=== PATIENT | male | born 1975 | race Caucasian/White ===

== ENCOUNTER 2017-10-12 16:27 | Emergency (ER) | payer OTHER, SELFPAY | END 2017-10-12 16:53 | disposition home or self-care (01) | LOC: ERS 16:27 | DX: B02.9 Zoster without complications (principal); I10 Essential (primary) hypertension; F17.210 Nicotine dependence, cigarettes, uncomplicated | CPT/HCPCS: 99282 ==

== ENCOUNTER 2017-10-16 08:46 | Emergency (ER) | payer SELFPAY ==
[2017-10-16] MEDS ORDERED: Ondansetron HCl/PF 4 MG/2 ML Vial ONE (09:31)
[2017-10-16 09:52] LABS: #Basophils 0.1 thou/uL (0.0-0.2); #Eosinphils 0.2 thou/uL (0.0-0.7); #Lymphocytes 1.8 thou/uL (1.20-3.40); #Monocytes 0.7 thou/uL (0.11-0.59); %Basophils 1.3 % (0.0-1.0); %Lymphocytes 26.7 % (21.0-51.0); %Monocytes 9.9 % (0.0-10.0); %Neutrophils 59.1 % (42.0-75.0); Hemoglobin 15.4 g/dL (14.0-18.0); Mean Corpuscular HGB CONC 33.7 g/dL (32.0-36.0); Mean Corpuscular Hemoglobin 30.4 pg (27.0-31.0); Mean Corpuscular Volume 90.3 fl (80.0-94.0); Mean Platelet Volume 7.9 fL (7.4-10.4); Platelet Count 236 thou/uL (130-400); Red Blood Cell (RBC) Count 5.05 mill/uL (4.70-6.10); White Blood Cell (WBC) Count 6.7 thou/uL (4.8-10.8)
[2017-10-16 10:17] LABS: ALT (SGPT) 25 U/L (8-55); AST (SGOT) 22 U/L (5-34); Albumin 4.5 g/dL (3.5-5.0); Alkaline Phosphatase 54 U/L (40-150); Anion Gap 12 mmol/L (10-20); BUN (Urea Nitrogen) 12 mg/dL (8.9-20.6); Bilirubin, Total 0.3 mg/dL (0.2-1.2); CK (CPK) 80 U/L (30-200); Calc. Creatinine Clearance 0 mL/min (70-130); Calcium 9.8 mg/dL (7.8-10.44); Carbon Dioxide 30 mmol/L (22-29); Chloride 100 mmol/L (98-107); Estimated GFR-MDRD 72; Globulin 2.9 g/dL (2.4-3.5); Glucose 100 mg/dL (70-105); Magnesium 2.2 mg/dL (1.6-2.6); Phosphorus 2.3 mg/dL (2.3-4.7); Potassium 3.7 mmol/L (3.5-5.1); Protein, Total 7.4 g/dL (6.0-8.3); Sodium 138 mmol/L (136-145)
== END 2017-10-16 10:59 | disposition home or self-care (01) ==
LOC: ERS 08:46
DX: R11.2 Nausea with vomiting, unspecified (principal); R20.2 Paresthesia of skin; T37.5X5A Adverse effect of antiviral drugs, initial encounter; T40.4X5A Adverse effect of other synthetic narcotics, initial encounter; B34.9 Viral infection, unspecified; I10 Essential (primary) hypertension; F17.210 Nicotine dependence, cigarettes, uncomplicated; Z79.899 Other long term (current) drug therapy
CPT/HCPCS: 80053; 82550; 83735; 84100; 85025; 96361; 96374; 99406; J2405

== ENCOUNTER 2017-11-28 08:40 | Emergency (ER) | payer SELFPAY ==
[2017-11-28] MEDS ORDERED: Lidocaine 1% PF 5 ML VIAL ONE (09:12)
== END 2017-11-28 09:27 | disposition home or self-care (01) ==
LOC: ERS 08:40
DX: L03.213 Periorbital cellulitis (principal); I10 Essential (primary) hypertension; F17.210 Nicotine dependence, cigarettes, uncomplicated; Z79.899 Other long term (current) drug therapy
CPT/HCPCS: 10060; J2001

== ENCOUNTER 2017-11-29 18:48 | Emergency (ER) | payer SELFPAY ==
[2017-11-29] MEDS ORDERED: HYDROcodone/Acetaminophen 5/325 mg Tablet ONE (19:08)
== END 2017-11-29 19:16 | disposition home or self-care (01) ==
LOC: ERS 18:48
DX: L02.01 Cutaneous abscess of face (principal); I10 Essential (primary) hypertension; F17.210 Nicotine dependence, cigarettes, uncomplicated
CPT/HCPCS: 99282

== ENCOUNTER 2018-01-12 16:38 | Emergency (ER) | payer SELFPAY ==
[2018-01-12] MEDS ORDERED: Ketorolac Tromethamine 30 MG/ML VIAL ONE (19:27)
== END 2018-01-12 19:52 | disposition home or self-care (01) ==
LOC: ERS 16:38
DX: K03.81 Cracked tooth (principal); K02.9 Dental caries, unspecified; I10 Essential (primary) hypertension; F17.210 Nicotine dependence, cigarettes, uncomplicated; Z71.6 Tobacco abuse counseling; Z79.899 Other long term (current) drug therapy
CPT/HCPCS: 96372; 99406; J1885

== ENCOUNTER 2018-01-14 17:02 | Emergency (ER) | payer SELFPAY ==
[~2018-01-14 17:02] MED LIST: ISOVUE-370 76%-LOCM 1 ML ONE
[2018-01-14 19:50] LABS: #Eosinphils 0.2 thou/uL (0.0-0.7); #Lymphocytes 2.1 thou/uL (1.20-3.40); #Monocytes 0.7 thou/uL (0.11-0.59); #Neutrophils 4.1 thou/uL (1.40-6.50); %Basophils 0.7 % (0.0-1.0); %Eosinophils 2.1 % (0.0-10.0); %Lymphocytes 29.8 % (21.0-51.0); %Neutrophils 57.4 % (42.0-75.0); Hemoglobin 15.8 g/dL (14.0-18.0); Mean Corpuscular HGB CONC 33.8 g/dL (32.0-36.0); Mean Corpuscular Hemoglobin 29.9 pg (27.0-31.0); Mean Corpuscular Volume 88.6 fl (80.0-94.0); Mean Platelet Volume 7.2 fL (7.4-10.4); Platelet Count 220 thou/uL (130-400); RBC Distribution Width 12.2 % (11.5-14.5); Red Blood Cell (RBC) Count 5.26 mill/uL (4.70-6.10); White Blood Cell (WBC) Count 7.1 thou/uL (4.8-10.8)
[2018-01-14 20:10] LABS: ALT (SGPT) 25 U/L (8-55); AST (SGOT) 19 U/L (5-34); Albumin 4.4 g/dL (3.5-5.0); Alkaline Phosphatase 77 U/L (40-150); Anion Gap 14 mmol/L (10-20); BUN (Urea Nitrogen) 10 mg/dL (8.9-20.6); Bilirubin, Total 0.3 mg/dL (0.2-1.2); Calc. Creatinine Clearance 0 mL/min (70-130); Carbon Dioxide 27 mmol/L (22-29); Chloride 103 mmol/L (98-107); Estimated GFR-MDRD 82; Globulin 3.3 g/dL (2.4-3.5); Glucose 114 mg/dL (70-105); Potassium 3.8 mmol/L (3.5-5.1); Protein, Total 7.7 g/dL (6.0-8.3); Sodium 140 mmol/L (136-145)
[2018-01-14] MEDS ORDERED: Clindamycin/D5W 600 mg/50 ml Premix Bag ONE (20:57)
[2018-01-14] MEDS ORDERED: Dexamethasone 10 MG/ML VIAL ONE (21:48)
--- NOTE | 2018-01-14 23:07 | CT ---
SOFT TISSUE NECK CT 01/14/18 INDICATION: Pain, edema. FINDINGS: There is soft tissue edema of the mental soft tissues more notable to the right of midline. Reactive adenopathy is seen. No acute abnormality of the submandibular glands or parotid glands. Thyroid gland is unremarkable. There are scattered periapical lucencies indicative of odontogenic disease. No drai nable abscess of the regional soft tissues is identified. Mild osseous degenerative change present. The epiglottis is within normal limits of size. There is mild prominence of the lingual tonsil. Palat ine tonsils are grossly unremarkable. IMPRESSION: Findings most consistent with cellulitis of the mental region. Odontogenic disease. No drainable abscess of the regional soft tissues identified. POS: [facility]
== END 2018-01-14 23:46 | disposition home or self-care (01) ==
LOC: ERS 17:02
DX: K02.9 Dental caries, unspecified (principal); I10 Essential (primary) hypertension; F17.210 Nicotine dependence, cigarettes, uncomplicated; Z79.891 Long term (current) use of opiate analgesic; Z79.899 Other long term (current) drug therapy
CPT/HCPCS: 70491; 80053; 85025; 96365; 96375; J1100; J3490

== ENCOUNTER 2018-08-05 13:28 | Emergency (ER) | payer SELFPAY ==
[2018-08-05 14:13] LABS: #Basophils 0.1 thou/uL (0.0-0.2); #Eosinphils 0.1 thou/uL (0.0-0.7); #Lymphocytes 2.1 thou/uL (1.20-3.40); #Monocytes 0.6 thou/uL (0.11-0.59); #Neutrophils 3.2 thou/uL (1.40-6.50); %Basophils 0.9 % (0.0-1.0); %Lymphocytes 34.5 % (21.0-51.0); %Monocytes 9.3 % (0.0-10.0); %Neutrophils 53.3 % (42.0-75.0); Hemoglobin 14.8 g/dL (14.0-18.0); Mean Corpuscular HGB CONC 33.6 g/dL (32.0-36.0); Mean Corpuscular Volume 89.4 fL (78.0-98.0); Mean Platelet Volume 8.2 fL (7.4-10.4); Platelet Count 252 thou/uL (130-400); RBC Distribution Width 12.5 % (11.5-14.5); Red Blood Cell (RBC) Count 4.95 mill/uL (4.70-6.10)
[2018-08-05 14:37] LABS: ALT (SGPT) 21 U/L (8-55); AST (SGOT) 21 U/L (5-34); Albumin 4.4 g/dL (3.5-5.0); Alkaline Phosphatase 60 U/L (40-150); Anion Gap 11 mmol/L (10-20); BUN (Urea Nitrogen) 10 mg/dL (8.9-20.6); Bilirubin, Total 0.4 mg/dL (0.2-1.2); Calc. Creatinine Clearance 0 mL/min (70-130); Calcium 9.5 mg/dL (7.8-10.44); Carbon Dioxide 29 mmol/L (22-29); Chloride 102 mmol/L (98-107); Estimated GFR-MDRD 73; Globulin 3.3 g/dL (2.4-3.5); Glucose 104 mg/dL (70-105); Potassium 3.6 mmol/L (3.5-5.1); Protein, Total 7.7 g/dL (6.0-8.3); Sodium 138 mmol/L (136-145)
--- NOTE | 2018-08-08 23:07 | EKG ---
Test Reason : Blood Pressure : / mmHG Vent. Rate : 084 BPM Atrial Rate : 084 BPM P-R Int : 166 ms QRS Dur : 098 ms QT Int : 376 ms P-R-T Axes : 048 005 007 degrees QTc Int : 444 ms Sinus rhythm with occasional Premature ventricular complexes Minimal voltage criteria for LVH, may be normal variant Borderline ECG Confirmed by GWENDOLYN HOGUE ([id number]), medical transcription editor GALE GARCIA ([id number] on 08/08/2018 11:07:22 PM Referred By: Confirmed By:GWENDOLYN HOGUE
== END 2018-08-05 15:09 | disposition home or self-care (01) ==
LOC: ERS 13:28
DX: F43.0 Acute stress reaction (principal); I10 Essential (primary) hypertension; F17.210 Nicotine dependence, cigarettes, uncomplicated; Z79.899 Other long term (current) drug therapy
CPT/HCPCS: 36415; 80053; 84443; 85025; 93005

== ENCOUNTER 2018-12-13 11:10 | Emergency (ER) | payer SELFPAY ==
[2018-12-13] MEDS ORDERED: Ibuprofen 800 MG TAB ONE (13:30)
--- NOTE | 2018-12-13 13:43 | RAD ---
FOUR VIEWS OF RIGHT KNEE: COMPARISON: None. HISTORY: Right knee pain. FINDINGS: Four views of the right knee show no evidence of acute fracture or dislocation. No knee effusion is seen. No degenerative changes are present. IMPRESSION: Unremarkable exam. POS: [facility]
== END 2018-12-13 13:40 | disposition home or self-care (01) ==
LOC: ERS 11:10
DX: M25.561 Pain in right knee (principal); I10 Essential (primary) hypertension; F17.210 Nicotine dependence, cigarettes, uncomplicated; X50.9XXA Other and unspecified overexertion or strenuous movements or postures, initial encounter

== ENCOUNTER 2019-01-06 08:01 | Emergency (ER) | payer SELFPAY ==
--- NOTE | 2019-01-06 08:28 | RAD ---
FExam:Right knee 4 views HISTORY: Pain. Injury. COMPARISON: 12/13/2018 FINDINGS: No significant joint effusion. Joint spaces are preserved No fracture or malalignment. IMPRESSION: No post traumatic change.
== END 2019-01-06 08:57 | disposition home or self-care (01) ==
LOC: ERS 08:01
DX: M25.561 Pain in right knee (principal)

== ENCOUNTER 2019-07-01 15:03 | Emergency (ER) | payer SELFPAY | END 2019-07-01 22:11 | disposition home or self-care (01) | LOC: ERS 15:03 | DX: J04.0 Acute laryngitis (principal); I10 Essential (primary) hypertension; F17.200 Nicotine dependence, unspecified, uncomplicated; Z79.899 Other long term (current) drug therapy | CPT/HCPCS: 87081; 87430; 99283 ==

== ENCOUNTER 2019-07-27 11:52 | Emergency (ER) | payer SELFPAY ==
[2019-07-27 12:28] LABS: #Eosinphils 0.1 thou/uL (0.0-0.7); #Monocytes 0.5 thou/uL (0.11-0.59); #Neutrophils 3.6 thou/uL (1.40-6.50); %Basophils 0.7 % (0.0-1.0); %Eosinophils 2.1 % (0.0-10.0); %Lymphocytes 31.7 % (21.0-51.0); %Monocytes 7.9 % (0.0-10.0); %Neutrophils 57.6 % (42.0-75.0); Hemoglobin 14.9 g/dL (14.0-18.0); Mean Corpuscular HGB CONC 33.7 g/dL (32.0-36.0); Mean Corpuscular Hemoglobin 30.1 pg (27.0-31.0); Mean Corpuscular Volume 89.3 fL (78.0-98.0); Mean Platelet Volume 7.8 fL (7.4-10.4); Platelet Count 222 thou/uL (130-400); RBC Distribution Width 12.4 % (11.5-14.5); Red Blood Cell (RBC) Count 4.95 mill/uL (4.70-6.10); White Blood Cell (WBC) Count 6.2 thou/uL (4.8-10.8)
[2019-07-27 12:59] LABS: ALT (SGPT) 19 U/L (8-55); AST (SGOT) 18 U/L (5-34); Albumin 4.3 g/dL (3.5-5.0); Alkaline Phosphatase 62 U/L (40-110); Anion Gap 13 mmol/L (10-20); BUN (Urea Nitrogen) 8 mg/dL (8.9-20.6); Bilirubin, Total 0.4 mg/dL (0.2-1.2); CK (CPK) 76 U/L (30-200); Calc. Creatinine Clearance 0 mL/min (70-130); Carbon Dioxide 26 mmol/L (22-29); Chloride 107 mmol/L (98-107); Estimated GFR-MDRD 81; Globulin 2.9 g/dL (2.4-3.5); Glucose 99 mg/dL (70-105); Potassium 3.7 mmol/L (3.5-5.1); Protein, Total 7.2 g/dL (6.0-8.3); Sodium 142 mmol/L (136-145)
--- NOTE | 2019-07-27 13:03 | RAD ---
PORTABLE UPRIGHT FRONTAL CHEST RADIOGRAPH: DATE: 07/27/2019. COMPARISON: 10/11/2015. HISTORY: Chest pain and hypertension. FINDINGS: No pneumothorax, pleural fluid, focal consolidation, or alveolar edema. Heart and mediastinal contou rs unremarkable. IMPRESSION: No acute findings. POS: [facility]
[2019-07-27] MEDS ORDERED: cloNIDine 0.1 MG TAB ONE (13:14)
== END 2019-07-27 14:15 | disposition home or self-care (01) ==
LOC: ERS 11:52
DX: I10 Essential (primary) hypertension (principal); R07.89 Other chest pain; F17.200 Nicotine dependence, unspecified, uncomplicated; Z79.899 Other long term (current) drug therapy
CPT/HCPCS: 36415; 71045; 80053; 82550; 84484; 85025; 93005

== ENCOUNTER 2020-03-31 10:20 | Emergency (ER) | payer OTHER, SELFPAY | END 2020-03-31 11:20 | disposition home or self-care (01) | LOC: ERS 10:20 | DX: R50.9 Fever, unspecified (principal); R51 Headache; R19.7 Diarrhea, unspecified; R11.0 Nausea; I10 Essential (primary) hypertension; F17.200 Nicotine dependence, unspecified, uncomplicated; Z20.828 Contact with and (suspected) exposure to other viral communicable diseases; Z79.899 Other long term (current) drug therapy | CPT/HCPCS: 87635; 99284; U0003 ==

== ENCOUNTER 2020-08-18 14:04 | Emergency (ER) | payer SELFPAY ==
[2020-08-18] MEDS ORDERED: Ketorolac Tromethamine 30 MG/ML VIAL ONE (15:08)
[2020-08-18] MEDS ORDERED: Lidocaine 1% PF 5 ML VIAL ONE (15:51)
== END 2020-08-18 16:53 | disposition short-term general hospital (02) ==
LOC: ERS 14:04
DX: S16.1XXA Strain of muscle, fascia and tendon at neck level, initial encounter (principal); M54.12 Radiculopathy, cervical region; I10 Essential (primary) hypertension; F17.210 Nicotine dependence, cigarettes, uncomplicated; Z79.899 Other long term (current) drug therapy; X58.XXXA Exposure to other specified factors, initial encounter
CPT/HCPCS: 96372; 99283; J1885

== ENCOUNTER 2021-06-19 13:39 | Emergency (ER) | payer OTHER ==
[2021-06-19] MEDS ORDERED: Ketorolac Tromethamine 30 MG/ML VIAL ONE (14:00)
[2021-06-19 20:17] LABS: SARS-CoV-2 PCR by NAA Not Detected (NotDetected)
== END 2021-06-19 14:47 | disposition home or self-care (01) ==
LOC: ERS 13:39
DX: R05 Cough (principal); R51.9 Headache, unspecified; Z20.822 Contact with and (suspected) exposure to COVID-19; I10 Essential (primary) hypertension; F17.210 Nicotine dependence, cigarettes, uncomplicated
CPT/HCPCS: 71045; 87804; 93005; 96372; J1885; U0003; U0005